=== PATIENT | male | born 1975 | race Caucasian/White ===

== ENCOUNTER 2022-07-10 05:58 | Emergency (ER) | payer BC ==
[~2022-07-10] VITALS: Ht 182.9 cm; Wt 105.2 kg
[2022-07-10 06:11] VITALS: BP 153/95
--- NOTE | 2022-07-10 06:28 | NUR ---
PT TO BED 07.
[2022-07-10] MEDS ORDERED: KETOROLAC 60 MG/2 ML VIAL IM ONE (06:40)
--- NOTE | 2022-07-10 07:21 | NUR ---
Patient being evaluated by physician at bedside.
[2022-07-10] MEDS ORDERED: IBUP-2213 PO (07:29)
[2022-07-10] MEDS ORDERED: PENI-319 PO (07:29)
[2022-07-10 07:55] VITALS: BP 142/84
--- NOTE | 2022-07-10 07:57 | NUR ---
Patient discharged with v/s stable. Written and verbal after care instructions given and explained. Patient alert, oriented and verbalized understanding of instructions. Ambulatory with steady gait. All questions addressed prior to discharge. ID band removed. Patient advised to follow up with PMD. Rx of IBUPROFEN, PENICILLIN given. Patient educated on indication of medication including possible reaction and side effects. Opportunity to ask questions provided and answered.
== END 2022-07-10 07:57 | disposition home or self-care (01) ==
LOC: MED 05:58
DX: K08.89 Other specified disorders of teeth and supporting structures (principal); J45.909 Unspecified asthma, uncomplicated; Z79.899 Other long term (current) drug therapy
CPT/HCPCS: 96372; 99283; J1885

== ENCOUNTER 2022-07-11 05:45 | Emergency (ER) | payer BC ==
[~2022-07-11] VITALS: Ht 182.9 cm; Wt 105.2 kg
[~2022-07-11 05:45] MED LIST: IBUP-2213 PO; PENI-319 PO
[2022-07-11 06:04] VITALS: BP 162/98
--- NOTE | 2022-07-11 06:12 | NUR ---
Patient taken to bed 12.
--- NOTE | 2022-07-11 06:21 | NUR ---
Dr. Muse examining patient.
[2022-07-11] MEDS ORDERED: KETOROLAC 30 MG/ML VIAL IVP ONE (06:25)
[2022-07-11] MEDS ORDERED: NACL 0.9% 1,000 ML IV ONE (06:25)
[2022-07-11 06:42] LABS: BASOPHILS % (AUTO) 0.3 % (0.0-2.0); EOSINOPHILS # (AUTO) 0.2 K/uL (0-0.4); EOSINOPHILS % (AUTO) 1.5 % (0.0-4.0); HEMATOCRIT 46.7 % (36-52); HEMOGLOBIN 16.3 g/dL (12.0-18.0); LYMPHOCYTES # (AUTO) 2.4 K/uL (2.0-11.5); LYMPHOCYTES % (AUTO) 19.5 % (20.5-51.1); MEAN CORPUSCULAR HEMOGLOBIN 33 pg (27-31); MEAN CORPUSCULAR HGB CONC 35 g/dL (33-37); MEAN CORPUSCULAR VOLUME 94.6 fL (80-94); MONOCYTES # (AUTO) 1.2 K/uL (0.8-1.0); MONOCYTES % (AUTO) 9.5 % (1.7-9.3); NEUTROPHILS # (AUTO) 8.7 K/uL (1.8-7.7); NEUTROPHILS % (AUTO) 69.2 % (42.2-75.2); PLATELET COUNT (AUTO) 159 K/uL (140-450); RED BLOOD CELL COUNT(AUTO) 4.93 MIL/uL (4.20-6.10); RED CELL DISTRIBUTION WIDTH 12.4 % (11.6-13.7); WHITE BLOOD COUNT (AUTO) 12.5 K/uL (4.8-10.8)
--- NOTE | 2022-07-11 09:25 | NUR ---
DR. TAYLOR AWARE OF CT SCAN RESULT, MD AT BEDSIDE, WILL WAIT FOR ORDERS FOR FURTHER DETAILS ON THE UPCOMING PLAN OF CARE.
--- NOTE | 2022-07-11 10:00 | NUR ---
PROVIDED PATIENT DISCHARGE EDUCATION, NO QUESTIONS NOTED AT THE MOMENT AND WILL REINFORCE IF NEEDED. PATIENT SUCCESSFULLY WALKED OUT WITHOUT COMPLICATIONS.
[2022-07-11 10:59] VITALS: BP 116/45
== END 2022-07-11 10:00 | disposition home or self-care (01) ==
LOC: MED 05:45
DX: K04.7 Periapical abscess without sinus (principal); J45.909 Unspecified asthma, uncomplicated; Z79.899 Other long term (current) drug therapy; Z98.890 Other specified postprocedural states
CPT/HCPCS: 36415; 70487; 80048; 85025; 96361; 96374; 99285; J1885; J7030; Q9967